=== PATIENT | female | born 1975 | race Two or more races ===

== ENCOUNTER 2019-11-13 16:26 | Inpatient (IN) | payer OTHER ==
[~2019-11-13] VITALS: Ht 12.7 cm; Wt 62.1 kg
== END 2019-11-14 13:16 | disposition home or self-care (01) | DRG 812 ==
LOC: OB/GYN 16:26
PROVIDERS: ADMIT Obstetrics & Gynecology; ATTEND Obstetrics & Gynecology
PROC: 30233N1 Transfusion of Nonautologous Red Blood Cells into Peripheral Vein, Percutaneous Approach (ICD-10-PCS; principal; 2019-11-13)
DX: D64.9 Anemia, unspecified (principal); N93.8 Other specified abnormal uterine and vaginal bleeding

== ENCOUNTER 2019-12-11 09:15 | Inpatient (IN) | payer OTHER ==
[~2019-12-11] VITALS: Ht 152.4 cm; Wt 61.2 kg
== END 2019-12-18 09:44 | disposition home or self-care (01) | DRG 743 ==
LOC: SURH 12-16 07:00 → O/R 12-16 08:31 → OB/GYN 12-16 08:31 → SURH 12-16 09:15 → O/R 12-16 09:15 → OB/GYN 12-16 13:38
PROVIDERS: ADMIT Obstetrics & Gynecology; ATTEND Obstetrics & Gynecology
PROC: 0UT70ZZ Resection of Bilateral Fallopian Tubes, Open Approach (ICD-10-PCS; 2019-12-16)
PROC: 0UT90ZZ Resection of Uterus, Open Approach (ICD-10-PCS; principal; 2019-12-16 07:00)
DX: D25.1 Intramural leiomyoma of uterus (principal); D25.2 Subserosal leiomyoma of uterus; N84.0 Polyp of corpus uteri; D64.9 Anemia, unspecified